=== PATIENT | male | born 1955 | race African-American/Black ===

== ENCOUNTER 2024-11-19 15:37 | Emergency (ER) | payer OTHER, SELFPAY ==
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
[2024-11-19 15:46] VITALS: BP 121/70; PULSE 71; RESP 18; TEMP 36.6; O2SAT 100
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
--- OUTSIDE RECORDS SUMMARY | 2024-11-19 17:24 | XMS_ITS | Referral Summary ---
Author Organization [facility] are Services Address [address] [place] [address] Care Team Providers Care Admittance Attendant Name Role Phone Cherrie Weir RN Unavailable Unavailable Jessie Perez CNP Primary Care Provider [phone] Allergies No known active allergies Social History Tobacco Use Types Packs/Day Years Used Date Smoking Tobacco: Never Assessed Social Connections Answer Date Recorded Phone Family/Friends/Neighbors per Week Not on f ile 05/22/2020 Gather with Friends/Family per Week Not on file 05/22/2020 Quaker/Presybeterian Services per Week Not on file 05/22/2020 Club/Organization Meetings per Year Not on file 05/22/2020 Social Connection Calculated Score 0 05/22/2020 Alcohol Use Answer Date Recorded Alcohol Consumption (Male) 0 05/22 Alcohol Consumption (Female) Not on file 04/2020 Financial Resource Strain Answer Date R ecorded Financial Concerns 2 08/22/2021 Depression Answer Date Recorded Patient feels they would be better off Not on file 05/22/2020 Depression Risk Score 0 05/22/2020 Stress Answer Date Recorded Patient Reported Major Stressor(s) 0 05/22/2020 Patient Reported Strengths 1 05/22 Patient Reported Source(s) of Support 1 05/22/2020 Physical Activity Answer Date Recorded Days per week engaged in moderate to strenuous e xercise: Not on file 05/22/2020 Average minutes engaged in exercise at this leve l: Not on file 05/22/2020 Calculated Minutes of Exercise per Week: 0 05/22/2020 Transportation Needs Answer Date Record ed Lack of Transportation (Medical) 0 05/22/2020 Housing Stability Answer Date Recorded Housing Concerns 0 05/22/2020 Substance Use Disorder Answer Date Chip rded Substance Use 0 05/22/2020 Violence and Abuse Answer Date Recorded Occurrence of Violence 0 Threat of Violence 0 05/22/2020 Occurrence of Insult 0 05/22/2020 Verbal Abuse 0 05/22/2020 Sex and Gender Information Value Date Recorded Sex Assigned at Not on file Legal Sex Male 9:20 AM MST Gender Identity Not on file Sexual Orientation Not on file Plan of Treatment Not on file Insurance [facility] Care Teams Admittance Attendant Relationship Specialty Start Date End Date Jessie Perez CNP [address] [place] [address] PCP - General 04/17/21 Cherrie Weir, RN [facility] Registered Nurse Gastroenterology 03/29/14
--- OUTSIDE RECORDS SUMMARY | 2024-11-19 17:24 | XMS_ITS ---
Author Name [facility] [place] [facility] [place] Address [address] [place] [address] Care Team Providers Care Advertising Designer Name Role Phone NEELIMA FRANKS Primary Care Provider UnavailHARPAL Bailey Unavailable Unavailable Insurance Providers: All historical and current Section Date Range: From patient's date of to the date document was created. This section includes the names of all active insurance providers for the patient. Insurance Provider Type of Coverage Plan Name Start of Policy Coverage End of Policy Coverage Group Number Member ID Insurance Provider's Telephone Number Policy Jovel's Name Patient's Relationship to Policy Jovel MEDICARE (WNR) MEDICARE (M) PART A Feb 19, 2019 PART A [id number] [place] PATIENT MEDICARE (WNR) MEDICARE (M) PART A Feb 19, 2019 PART A [id number] [place] PATIENT Selected Encounter This section includes the information on record at OR for the Encounter. Date/Time Encounter Type Encounter Description Reason Pro vider Source Oct 08, 2024 08:39 AM Outpatient Encounter ADMIN PAT ACTIVTIES (MASNONCT) IHE Encounter Template Text not used by [place] Social History: Smoking Status (Most current) and Tobacco Use (All prior to encounter date) This section includes the most current, and the historical, smoking and tobacco- related health factors from the [place] facility where the Encounter took place. Current Smoking Status This section includes the most current smoking, or tobacco-related health factor, from the [place] facility where the Encounter took place. Date/Time Current Smoking Status Comment Alice chavez Oct 04, 2022 09:30 AM VA-TOBACCO FORMER USER ARACELIS MENESES [facility] Tobacco Use History This section includes a history of the smoking, or tobacco-related health factors, that were collected on or before the date of the Encounter. The data comes from the [place] facility where the Encounter took place. Date/Time Smoking Status/Tobacco Use Comment F acility Oct 04, 2022 09:30 AM VA-TOBACCO QUIT 15 YRS OR MORE [facility]ELIS MENESES [facility] Sep 28, 2021 08:38 AM VA-TOBACCO FORMER USER ARACELIS MiroslavaSiddhartha MENESES [facility] Sep 28, 2021 08:38 AM VA-TOBACCO QUIT 15 YRS OR MORE ARACELIS MENESES [facility] August 24, 2020 09:15 AM VA-TOBACCO FORMER USER ARACELIS Robbi GIDEON [facility] August 24, 2020 09:15 AM VA-TOBACCO QUIT 15 YRS OR MORE ARACELIS MENESES [facility] Feb 19, 2018 11:23 AM VA-TOBACCO FORMER USER ARACELIS MiroslavaSiddhartha MENESES [facility] Feb 19, 2018 11:23 AM VA-TOBACCO QUIT 15 YRS OR MORE ARACELIS MENESES [facility] Aug 18, 2017 02:21 PM LIFETIME NON-TOBACCO USER ARACELIS MENESES [facility] Aug 18, 2017 02:21 PM TOBACCO SCREEN DONE ARACELIS MENESES [facility] Oct 28, 2016 02:16 PM TOBACCO LAST USED DATE ARACELIS MiroslavaSiddhartha MENESES [facility] Oct 28, 2016 12:36 PM LIFETIME NON-TOBACCO USER ARACELIS MiroslavaSiddhartha MENESES [facility] Oct 28, 2016 12:36 PM TOBACCO SCREEN DONE ARACELIS MENESES [facility] Dec 07, 2015 08:34 AM LIFETIME NON-TOBACCO USER ARACELIS MiroslavaSiddhartha MENESES [facility] Dec 07, 2015 08:34 AM TOBACCO SCREEN DONE ARACELIS MENESES [facility] Feb 06, 2015 01:02 PM TOBACCO LAST USED DATE [facility]ACELIS MENESES [facility] Encounter Notes: All associated encounter notes This section contains the clinical notes associated to the Encounter. Date/Time Encounter Note(s) Provider Source Oct 08, 2024 08:45 AM ADMINISTRATIVE NOT E: LOCAL TITLE: GENERAL ADMINISTRATIVE NOTE STANDARD TITLE: ADMINISTRATIVE NOTE DATE OF NOTE: OCT 08, 2024@08:45 ENTRY DATE: OCT 08, 2024@08:46:01 AUTHOR: HIEN COBB COSIGNER: URGENCY: STATUS: COMPLETED The letter text copied below was printed on [employer] letterhead and mailed to the patient along with a brochure about liver health and the FibroScan test. = AddressBlock GreetingLine We hope this letter finds you well. We are writing to follow on the letter sent to you on FirstLetterDate . The Liver Health Team is working with your primary care team to improve early recognition of liver disease. A calculation done using some of your lab results and your age suggests that you may be at risk for liver disease. Dr. Sommer and Dr. Mejias have/has asked the Liver Health Team to contact all of their patients who may be at risk for liver disease for further evaluation. To find out if you have liver disease, the Liver Health Team and your primary care team would like to give you the opportunity to have a FibroScan, an FDA-approved, non- invasive diagnostic test used to measure liver scarring or fibrosis caused by a number of liver conditions. We make this recommendation because if liver disease is present, early treatment helps decrease future complications. If you are interested in a FibroScan please call the [facility] FibroScan master scheduler at x [phone]. Please additionally read the instructions below prior to your appointment. You will need to fast (nothing to eat or drink) for 3 hours before your appointment. You should not drink any alcohol for at least three days prior to your appointment as alcohol intake can make the FibroScan results inaccurate. If you have any questions about the risk calculation or the FibroScan, please call the number above and ask to speak to a member of the Liver Health Team. Thank you for taking an active role in your healthcare. Sincerely, The Liver Health Team [facility] = /es/ HIEN COBB MD/ATTENDING PHYSICIAN Signed: 10/08/2024 08:48 HIEN COBB [facility]
--- OUTSIDE RECORDS SUMMARY | 2024-11-19 17:24 | XMS_ITS | Encounter Summary ---
Author Name [facility] [place] [facility] [facility] [place] Address [address] [place] [address] Care Team Providers Care Bias Machine Operator Name Role Phone NEELIMA FRANKS Primary Care [...] PART A Feb 19, 2019 PART A [id number] [place] PATIENT MEDICARE (WNR) MEDICARE (M) PART A Feb 19, 2019 PART A [id number] [place] PATIENT Selected Encounter This section includes the information on record at [place] for the Encounter. Date/Time Encounter Type Encounter Description Reason Pro vider Source Dec 31, 2023 04:24 PM Outpatient Encounter ADMIN PAT ACTIVTIES (MASNONCT) IHE Encounter Template Text not used by [place] Plan of Treatment: Future Appointments (+ 6 months) and Future Tests (+/- 45 days) The Plan of Treatment section includes future care activities for the patient from all VA treatmentfacilities. This section includes future appointments and future orders which are active, pending or scheduled. Active, Pending, and Scheduled Orders This section includes a listing of several types of active, pending, and scheduled orders, including clinic medications orders, diagnostic test orders, procedure orders and consult orders; where the start date of the order is 45 days before the date of the Encounter or 45 days after the date of theEncounter. The data comes from all [place] treatment facilities. Test Date/Time Test Type Test Details Facility Name Dec 09, 2023 12:00 AM Laboratory - Chemi stry Order LIPID PANEL LT GREEN/LITHIUM HEPARIN GEL PLASMA ROUTINE SP [facility]IS PINEDA [facility] Dec 16, 2023 12:00 AM Laboratory - Chemi stry Order Hepatitis C Antibody w/Reflex GOLD TOP SERUM ROUTINE SP AR[facility]ELIS PINEDA [facility] Social History: Smoking Status (Most current) and Tobacco Use (All prior to encounter date) This section includes the most current, and the historical, smoking and tobacco- related health factors from the [place] facility where the Encounter took place. Current Smoking Status This section includes the most current smoking, or tobacco-related health factor, from the [place] facility where the Encounter took place. Date/Time Current Smoking Status Comment Facil ity Oct 04, 2022 09:30 AM VA-TOBACCO FORMER USER [facility] PINEDA [facility] Tobacco Use History This section includes a history of the smoking, or tobacco-related health factors, that were collected on or before the date of the Encounter. The data comes from the [place] facility where the Encounter took place. Date/Time Smoking Status/Tobacco Use Comment F acility Oct 04, 2022 09:30 AM VA-TOBACCO QUIT 15 YRS OR MORE [facility] PINED[facility] Sep 28, 2021 08:38 AM VA-TOBACCO FORMER USER [facility]IS PINEDA [facility] Sep 28, 2021 08:38 AM VA-TOBACCO QUIT 15 YRS OR MORE [facility] August 24, 2020 09:15 AM VA-TOBACCO FORMER USER [facility]ELIS PINEDA [facility] August 24, 2020 09:15 AM VA-TOBACCO QUIT 15 YRS OR MORE [facility] PINEDA [facility] Feb 19, 2018 11:23 AM VA-TOBACCO FORMER USER [facility]ELIS PINEDA [facility] Feb 19, 2018 11:23 AM VA-TOBACCO QUIT 15 YRS OR MORE [facility] PINEDA [facility] Aug 18, 2017 02:21 PM LIFETIME NON-TOBACCO USER ARACELIS PINEDA [facility] Aug 18, 2017 02:21 PM TOBACCO SCREEN DONE AR[facility]ELIS PINEDA [facility] Oct 28, 2016 02:16 PM TOBACCO LAST USED DATE [facility]ELIS PINEDA [facility] Oct 28, 2016 12:36 PM LIFETIME NON-TOBACCO USER ARACELIS PINEDA [facility] Oct 28, 2016 12:36 PM TOBACCO SCREEN DONE AR[facility]ELIS PINEDA [facility] Dec 07, 2015 08:34 AM LIFETIME NON-TOBACCO USER ARACELIS PINEDA [facility] Dec 07, 2015 08:34 AM TOBACCO SCREEN DONE ARACELIS PINEDA [facility] Feb 06, 2015 01:02 PM TOBACCO LAST USED DATE [facility]ELIS PINEDA [facility] Encounter Notes: All associated encounter notes This section contains the clinical notes associated to the Encounter. Date/Time Encounter Note(s) Provider Source Dec 31, 2023 04:24 PM LETTERS: LOCAL TITLE: LETTER TO PATIENT - AMB CARE STANDARD TITLE: LETTERS DATE OF NOTE: DEC 31, 2023@16:24 ENTRY DATE: DEC 31, 2023@16:24:28 AUTHOR: NEELIMA FRANKS EXP COSIGNER: URGENCY: STATUS: COMPLETED Aracelis Pineda [address] [address] [place] remains committed to honoring our Nation's Veterans by ensuring a safe environment to deliver exceptional health care [address] [place], [place], [address] Dear Jacque Vega, The Gastroenterology scheduling department has attempted several methods to contact you in order to schedule a Fibroscan. To date, they have not heard a response from you. Please call or at Extension [phone] for scheduling this appointment. If you have concerns, please call us at or Option 1 for pharmacy Option 2 to make/cancel/reschedule appointments or to leave a message for your primary care team Option 3 to speak to a triage nurse about a medical condition Sincerely, Neelima Franks MD [address] [place] [address] No Future Appointment NEELIMA FRANKS MiroslavaSiddhartha [facility]EDA [facility]
--- OUTSIDE RECORDS SUMMARY | 2024-11-19 17:24 | XMS_ITS | Clinical Summary ---
Author Organization [facility] are Services Address [address] [place] [address] Care Team Providers Care Workday Consultant Name Role Phone Cherrie Weir RN Unavailable Unavailable Jessie Perez CNP Primary Care Provider +1- [phone] Allergies No known active allergies Social History Tobacco Use Types Packs/Day Years Used Date Smoking Tobacco: Never Assessed Social Connections Answer Date Recorded Phone Family/Friends/Neighbors per Week Not on f ile 05/22/2020 Gather with Friends/Family per Week Not on file 05/22/2020 Taoism/Gnosticism Services per Week Not on file 05/22/2020 [...] Orientation Not on file Plan of Treatment Health Maintenance Due Date Last Done Comments Advanced Directive 1954 Colonoscopy 1954 Colorectal Cancer Screening 1954 DTaP. TDaP, and TD (1 - Tdap) 1978 (Cologuard) FIT-DNA 1999 CT Colonography 1999 FIT 1999 Pneumococcal Vaccine: 50+ Ye ars (1 of 1 - PCV) 2004 Zoster Vaccine (1 of 2) 2004 HEPATITIS C SCREENING 03/29/2014 COVID-19 Vaccine ( - 2023-2 5 season) 2023 Influenza Vaccine (#1) 2024 HPV IMMUNIZATION Aged Out No longer e ligible based on patient's age to complete this topic Meningococcal B Vaccine Aged Out No l onger eligible based on patient's age to complete this topic Insurance [facility] [employer] Care Teams Workday Consultant Relationship Specialty Start Date End Date Jessie Perez CNP [address] [place] [address] PCP - General 04/17/21 Cherrie Weir, RN [employer] Registered Nurse Gastroenterology 03/29/14
--- OUTSIDE RECORDS SUMMARY | 2024-11-19 17:25 | XMS_ITS | Continuity of Care Document ---
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 2023 05:13 PM Reporting Lab: [facility] [address] [place] [address] Performing Lab: [facility] [address] [place] [address] [facility] CBC w/Auto Diff ERYTHROCYT E DISTRIBUTI ON WIDTH [RATIO] BY AUTOMATED COUNT 13.0 11.0 - 14.5 08/26 Specimen Type: BLOOD No comment entered. Ordering Provider: HARPAL DEXTER Report Released Date/Time: Jun 04, 2023 05:13 PM Reporting Lab: [facility] [address] [place] [address] Performing Lab: [facility] [address] [place] [address] [facility] CBC w/Auto Diff LYMPHOCYTE S/100 LEUKOCYTES IN BLOOD BY AUTOMATED COUNT 53.8 08/26 Specimen Type: BLOOD No comment entered. Ordering Provider: HARPAL DEXTER Report Released Date/Time: Jun 04, 2023 05:13 PM Reporting Lab: [facility] [address] [place] [address] Performing Lab: [facility] [address] [place] [address] [facility] CBC w/Auto Diff NEUTROPHIL S/100 LEUKOCYTES IN BLOOD BY AUTOMATED COUNT 33.6 08/26 Specimen Type: BLOOD No comment entered. Ordering Provider: HARPAL DEXTER Report Released Date/Time: Jun 04, 2023 05:13 PM Reporting Lab: [facility] [address] [place] [address] Performing Lab: [facility] [address] [place] [address] [facility] CBC w/Auto Diff MONOCYTES/ 100 LEUKOCYTES IN BLOOD BY AUTOMATED COUNT 9.4 08/26 Specimen Type: BLOOD No comment entered. Ordering Provider: HARPAL DEXTER Report Released Date/Time: Jun 04, 2023 05:13 PM Reporting Lab: [facility] [address] [place] [address] Performing Lab: [facility] [address] [place] [address] [facility] CBC w/Auto Diff EOSINOPHIL S/100 LEUKOCYTES IN BLOOD BY AUTOMATED COUNT 2.0 08/26 Specimen Type: BLOOD No comment entered. Ordering Provider: HARPAL DEXTER Report Released Date/Time: Jun 04, 2023 05:13 PM Reporting Lab: [facility] [address] [place] [address] Performing Lab: [facility] [address] [place] [address] [facility] CBC w/Auto Diff BASOPHILS/ 100 LEUKOCYTES IN BLOOD BY AUTOMATED COUNT 1.0 08/26 Specimen Type: BLOOD No comment entered. Ordering Provider: HARPAL DEXTER Report Released Date/Time: Jun 04, 2023 05:13 PM Reporting Lab: [facility] [address] [place] [address] Performing Lab: [facility] [address] [place] [address] [facility] CBC w/Auto Diff LYMPHOCYTE S [#/VOLUME] IN BLOOD BY AUTOMATED COUNT 2.17 10*3/uL 1.00 - 3.40 08/26 Specimen Type: BLOOD No comment entered. Ordering Provider: HARPAL DEXTER Report Released Date/Time: Jun 04, 2023 05:13 PM Reporting Lab: [facility] [address] [place] [address] Performing Lab: [facility] [address] [place] [address] [facility] CBC w/Auto Diff MONOCYTES [#/VOLUME] IN BLOOD BY AUTOMATED COUNT 0.38 10*3/uL 0.20 - 0.80 08/26 Specimen Type: BLOOD No comment entered. Ordering Provider: HARPAL DEXTER Report Released Date/Time: Jun 04, 2023 05:13 PM Reporting Lab: [facility] [address] [place] [address] Performing Lab: [facility] [address] [place] [address] [facility] CBC w/Auto Diff NEUTROPHIL S [#/VOLUME] IN BLOOD 1.35 10*3/uL 1.80 - 7.00 08/26 L Specimen Type: BLOOD No comment entered. Ordering Provider: HARPAL DEXTER Report Released Date/Time: Jun 04, 2023 05:13 PM Reporting Lab: [facility] [address] [place] [address] Performing Lab: [facility] [place] [address] [place] [address] [facility] CBC w/Auto Diff EOSINOPHIL S [#/VOLUME] IN BLOOD BY AUTOMATED COUNT 0.08 10*3/uL 0.00 - 0.30 08/26 Specimen Type: BLOOD No comment entered. Ordering Provider: HARPAL DEXTER Report Released Date/Time: Jun 04, 2023 05:13 PM Reporting Lab: [facility] [address] [place] [address] Performing Lab: [facility] [place] [address] [place] [address] [facility] CBC w/Auto Diff BASOPHILS/ 100 LEUKOCYTES IN BLOOD BY AUTOMATED COUNT 0.04 10*3/uL 0.00 - 0.10 08/26 Specimen Type: BLOOD No comment entered. Ordering Provider: HARPAL DEXTER Report Released Date/Time: Jun 04, 2023 05:13 PM Reporting Lab: [facility] [address] [address] Performing Lab: [facility] [address] [address] [facility] CBC w/Auto Diff IMMATURE GRANULOCYT ES/100 LEUKOCYTES IN BLOOD 0.2 0 - 0.5 08/26 Specimen Type: BLOOD No comment entered. Ordering Provider: HARPAL DEXTER Report Released Date/Time: Jun 04, 2023 05:13 PM Reporting Lab: [facility] [address] [place] [address] Performing Lab: [facility] [address] [address] [facility] BASIC METABOLIC PANEL UREA NITROGEN [MASS/VOLU ME] IN SERUM OR PLASMA 15 mg/dL 9 - 20 08/26 Specimen Type: PLASMA Comment: eGFR calculated using the 2020 CKD-EPI-cre atinine equation. eGFR can only be interpreted if creatinine is in a steady state and is not valid in patients with acute kidney injury and in patients on dialysis. An eGFR >60 mL/min/1.73 m2 in the absence of kidney damage does not represent CKD. If eGFR is used for drug dosing in very large or small patients, an eGFR for drug dosing should be calculated as follows: eGFR (mL/min) = reported eGFR (mL/min/1.7 3 m2) x body surface area/1.73 CKD stage eGFR (mL/min/1.7 3 m2) G1 >=90 G2 60-89 G3A 45-59 G3B 30-44 G4 15-29 G5 <15 Ordering Provider: HARPAL DEXTER Report Released Date/Time: Jun 04, 2023 05:13 PM Reporting Lab: [facility] [address] [place] [address] Performing Lab: [facility] [place] [address] [address] [facility] BASIC METABOLIC PANEL GLUCOSE [MASS/VOLU ME] IN SERUM OR PLASMA 94 mg/dL 74 - 99 08/26 Specimen Type: PLASMA Comment: eGFR calculated using the 2020 CKD-EPI-cre atinine equation. eGFR can only be interpreted if creatinine is in a steady state and is not valid in patients with acute kidney injury and in patients on dialysis. An eGFR >60 mL/min/1.73 m2 in the absence of kidney damage does not represent CKD. If eGFR is used for drug dosing in very large or small patients, an eGFR for drug dosing should be calculated as follows: eGFR (mL/min) = reported eGFR (mL/min/1.7 3 m2) x body surface area/1.73 CKD stage eGFR (mL/min/1.7 3 m2) G1 >=90 G2 60-89 G3A 45-59 G3B 30-44 G4 15-29 G5 <15 Ordering Provider: HARPAL DEXTER Report Released Date/Time: Jun 04, 2023 05:13 PM Reporting Lab: [facility] [place] [address] [place] [address] Performing Lab: [facility] [place] [address] [place] [address] [facility] BASIC METABOLIC PANEL SODIUM [MOLES/VOL UME] IN SERUM OR PLASMA 137 mmol/L 135 - 145 08/26 Specimen Type: PLASMA Comment: eGFR calculated using the 2020 CKD-EPI-cre atinine equation. eGFR can only be interpreted if creatinine is in a steady state and is not valid in patients with acute kidney injury and in patients on dialysis. An eGFR >60 mL/min/1.73 m2 in the absence of kidney damage does not represent CKD. If eGFR is used for drug dosing in very large or small patients, an eGFR for drug dosing should be calculated as follows: eGFR (mL/min) = reported eGFR (mL/min/1.7 3 m2) x body surface area/1.73 CKD stage eGFR (mL/min/1.7 3 m2) G1 >=90 G2 60-89 G3A 45-59 G3B 30-44 G4 15-29 G5 <15 Ordering Provider: HARPAL DEXTER Report Released Date/Time: Jun 04, 2023 05:13 PM Reporting Lab: [facility] [place] [address] [address] Performing Lab: [facility] [address] [place] [address] [facility] BASIC METABOLIC PANEL POTASSIUM [MOLES/VOL UME] IN SERUM OR PLASMA 3.8 mmol/L 3.4 - 4.8 08/26 Specimen Type: PLASMA Comment: eGFR calculated using the 2020 CKD-EPI-cre atinine equation. eGFR can only be interpreted if creatinine is in a steady state and is not valid in patients with acute kidney injury and in patients on dialysis. An eGFR >60 mL/min/1.73 m2 in the absence of kidney damage does not represent CKD. If eGFR is used for drug dosing in very large or small patients, an eGFR for drug dosing should be calculated as follows: eGFR (mL/min) = reported eGFR (mL/min/1.7 3 m2) x body surface area/1.73 CKD stage eGFR (mL/min/1.7 3 m2) G1 >=90 G2 60-89 G3A 45-59 G3B 30-44 G4 15-29 G5 <15 Ordering Provider: HARPAL DEXTER Report Released Date/Time: Jun 04, 2023 05:13 PM Reporting Lab: [facility] [address] [place] [address] Performing Lab: [facility] [address] [place] [address] [facility] BASIC METABOLIC PANEL CHLORIDE [MOLES/VOL UME] IN SERUM OR PLASMA 102 mmol/L 98 - 107 08/26 Specimen Type: PLASMA Comment: eGFR calculated using the 2020 CKD-EPI-cre atinine equation. eGFR can only be interpreted if creatinine is in a steady state and is not valid in patients with acute kidney injury and in patients on dialysis. An eGFR >60 mL/min/1.73 m2 in the absence of kidney damage does not represent CKD. If eGFR is used for drug dosing in very large or small patients, an eGFR for drug dosing should be calculated as follows: eGFR (mL/min) = reported eGFR (mL/min/1.7 3 m2) x body surface area/1.73 CKD stage eGFR (mL/min/1.7 3 m2) G1 >=90 G2 60-89 G3A 45-59 G3B 30-44 G4 15-29 G5 <15 Ordering Provider: HARPAL DEXTER Report Released Date/Time: Jun 04, 2023 05:13 PM Reporting Lab: [facility] [place] [address] [place] [address] Performing Lab: [facility] [address] [place] [address] [facility] BASIC METABOLIC PANEL CARBON DIOXIDE, TOTAL [MOLES/VOL UME] IN SERUM OR PLASMA 28 mmol/L 08/26 Specimen Type: PLASMA Comment: eGFR calculated using the 2020 CKD-EPI-cre atinine equation. eGFR can only be interpreted if creatinine is in a steady state and is not valid in patients with acute kidney injury and in patients on dialysis. An eGFR >60 mL/min/1.73 m2 in the absence of kidney damage does not represent CKD. If eGFR is used for drug dosing in very large or small patients, an eGFR for drug dosing should be calculated as follows: eGFR (mL/min) = reported eGFR (mL/min/1.7 3 m2) x body surface area/1.73 CKD stage eGFR (mL/min/1.7 3 m2) G1 >=90 G2 60-89 G3A 45-59 G3B 30-44 G4 15-29 G5 <15 Ordering Provider: HARPAL DEXTER Report Released Date/Time: Jun 04, 2023 05:13 PM Reporting Lab: [facility] [address] [place] [address] Performing Lab: [facility] [place] [address] [place] [address] [facility] BASIC METABOLIC PANEL CALCIUM [MASS/VOLU ME] IN SERUM OR PLASMA 9.4 mg/dL 8.4 - 10.2 08/26 Specimen Type: PLASMA Comment: eGFR calculated using the 2020 CKD-EPI-cre atinine equation. eGFR can only be interpreted if creatinine is in a steady state and is not valid in patients with acute kidney injury and in patients on dialysis. An eGFR >60 mL/min/1.73 m2 in the absence of kidney damage does not represent CKD. If eGFR is used for drug dosing in very large or small patients, an eGFR for drug dosing should be calculated as follows: eGFR (mL/min) = reported eGFR (mL/min/1.7 3 m2) x body surface area/1.73 CKD stage eGFR (mL/min/1.7 3 m2) G1 >=90 G2 60-89 G3A 45-59 G3B 30-44 G4 15-29 G5 <15 Ordering Provider: HARPAL DEXTER Report Released Date/Time: Jun 04, 2023 05:13 PM Reporting Lab: [facility] [address] [place] [address] Performing Lab: [facility] [place] [address] [place] [address] [facility] BASIC METABOLIC PANEL CREATININE [MASS/VOLU ME] IN SERUM OR PLASMA 1.06 mg/dL 0.66 - 1.25 08/26 Specimen Type: PLASMA Comment: eGFR calculated using the 2020 CKD-EPI-cre atinine equation. eGFR can only be interpreted if creatinine is in a steady state and is not valid in patients with acute kidney injury and in patients on dialysis. An eGFR >60 mL/min/1.73 m2 in the absence of kidney damage does not represent CKD. If eGFR is used for drug dosing in very large or small patients, an eGFR for drug dosing should be calculated as follows: eGFR (mL/min) = reported eGFR (mL/min/1.7 3 m2) x body surface area/1.73 CKD stage eGFR (mL/min/1.7 3 m2) G1 >=90 G2 60-89 G3A 45-59 G3B 30-44 G4 15-29 G5 <15 Ordering Provider: HARPAL DEXTER Report Released Date/Time: Jun 04, 2023 05:13 PM Reporting Lab: [facility] [address] [place] [address] Performing Lab: [facility] [place] [address] [place] [address] [facility] BASIC METABOLIC PANEL GLOMERULAR FILTRATION RATE/1.73 SQ M.PREDICTE D [VOLUME RATE/AREA] IN SERUM, PLASMA OR BLOOD BY CREATININE -BASED FORMULA (CKD-EPI 2020) 76 90 08/26 L Specimen Type: PLASMA Comment: eGFR calculated using the 2020 CKD-EPI-cre atinine equation. eGFR can only be interpreted if creatinine is in a steady state and is not valid in patients with acute kidney injury and in patients on dialysis. An eGFR >60 mL/min/1.73 m2 in the absence of kidney damage does not represent CKD. If eGFR is used for drug dosing in very large or small patients, an eGFR for drug dosing should be calculated as follows: eGFR (mL/min) = reported eGFR (mL/min/1.7 3 m2) x body surface area/1.73 CKD stage eGFR (mL/min/1.7 3 m2) G1 >=90 G2 60-89 G3A 45-59 G3B 30-44 G4 15-29 G5 <15 Ordering Provider: HARPAL DEXTER Report Released Date/Time: Jun 04, 2023 05:13 PM Reporting Lab: [facility] [address] [place] [address] Performing Lab: [facility] [address] [address] [facility] BASIC METABOLIC PANEL ANION GAP 3 IN SERUM OR PLASMA 7 mmol/L 6 - 14 08/26 Specimen Type: PLASMA Comment: eGFR calculated using the 2020 CKD-EPI-cre atinine equation. eGFR can only be interpreted if creatinine is in a steady state and is not valid in patients with acute kidney injury and in patients on dialysis. An eGFR >60 mL/min/1.73 m2 in the absence of kidney damage does not represent CKD. If eGFR is used for drug dosing in very large or small patients, an eGFR for drug dosing should be calculated as follows: eGFR (mL/min) = reported eGFR (mL/min/1.7 3 m2) x body surface area/1.73 CKD stage eGFR (mL/min/1.7 3 m2) G1 >=90 G2 60-89 G3A 45-59 G3B 30-44 G4 15-29 G5 <15 Ordering Provider: HARPAL DEXTRE Report Released Date/Time: Jun 04, 2023 05:13 PM Reporting Lab: [facility] [address] [place] [address] Performing Lab: [facility] [address] [place] [address] [facility] URINALYSI S COLOR OF URINE Light-Ye llow 08/26 Specimen Type: URINE No comment entered. Ordering Provider: HARPAL DEXTER Report Released Date/Time: Jun 04, 2023 05:13 PM Reporting Lab: [facility] [address] [place] [address] Performing Lab: [facility] [address] [place] [address] [facility] URINALYSI S SPECIFIC GRAVITY OF URINE 1.018 1.001 - 1.029 08/26 Specimen Type: URINE No comment entered. Ordering Provider: HARPAL DEXTER Report Released Date/Time: Jun 04, 2023 05:13 PM Reporting Lab: [facility] [address] [place] [address] Performing Lab: [facility] [address] [place] [address] [facility] URINALYSI S UROBILINOG EN [UNITS/VOL UME] IN URINE BY TEST STRIP Normalmg /dL 08/26 Specimen Type: URINE No comment entered. Ordering Provider: HARPAL DEXTER Report Released Date/Time: Jun 04, 2023 05:13 PM Reporting Lab: [facility] [address] [place] [address] Performing Lab: [facility] [address] [place] [address] [facility] URINALYSI S BILIRUBIN. TOTAL [PRESENCE] IN URINE Negative mg/dL 08/26 Specimen Type: URINE No comment entered. Ordering Provider: HARPAL DEXTER Report Released Date/Time: Jun 04, 2023 05:13 PM Reporting Lab: [facility] [address] [place] [address] Performing Lab: [facility] [address] [place] [address] [facility] URINALYSI S KETONES [MASS/VOLU ME] IN URINE BY TEST STRIP Negative mg/dL 08/26 Specimen Type: URINE No comment entered. Ordering Provider: HARPAL DEXTER Report Released Date/Time: Jun 04, 2023 05:13 PM Reporting Lab: [facility] [address] [place] [address] Performing Lab: [facility] [address] [place] [address] [facility] URINALYSI S GLUCOSE [MASS/VOLU ME] IN URINE BY TEST STRIP Normalmg /dL 08/26 Specimen Type: URINE No comment entered. Ordering Provider: HARPAL DEXTER Report Released Date/Time: Jun 04, 2023 05:13 PM Reporting Lab: [facility] [address] [place] [address] Performing Lab: [facility] [address] [place] [address] [facility] URINALYSI S PROTEIN [MASS/VOLU ME] IN URINE BY TEST STRIP 30 mg/dL - 10 08/26 H Specimen Type: URINE No comment entered. Ordering Provider: HARPAL DEXTER Report Released Date/Time: Jun 04, 2023 05:13 PM Reporting Lab: [facility] [address] [place] [address] Performing Lab: [facility] [address] [address] [facility] URINALYSI S PH OF URINE BY TEST STRIP 7.0 5.0 - 8.0 08/26 Specimen Type: URINE No comment entered. Ordering Provider: HARPAL DEXTER Report Released Date/Time: Jun 04, 2023 05:13 PM Reporting Lab: [facility] [address] [place] [address] Performing Lab: [facility] [address] [place] [address] [facility] URINALYSI S MUCUS [PRESENCE] IN URINE SEDIMENT BY LIGHT MICROSCOPY Few 08/26 Specimen Type: URINE No comment entered. Ordering Provider: HARPAL DEXTER Report Released Date/Time: Jun 04, 2023 05:13 PM Reporting Lab: [facility] [address] [place] [address] Performing Lab: [facility] [address] [address] [facility] URINALYSI S ERYTHROCYT ES [#/AREA] IN URINE SEDIMENT BY MICROSCOPY HIGH POWER FIELD 1 /[HPF] 0 - 4 08/26 Specimen Type: URINE No comment entered. Ordering Provider: HARPAL DEXTER Report Released Date/Time: Jun 04, 2023 05:13 PM Reporting Lab: [facility] [address] [address] [place] [address] Performing Lab: [facility] [address] [address] [address] [facility] URINALYSI S APPEARANCE OF URINE Clear 08/26 Specimen Type: URINE No comment entered. Ordering Provider: HARPAL DEXTER Report Released Date/Time: Jun 04, 2023 05:13 PM Reporting Lab: [facility] [address] [place] [address] Performing Lab: [facility] [address] [address] [place] [address] [facility] URINALYSI S EPITHELIAL CELLS.SQUA MOUS [#/AREA] IN URINE SEDIMENT BY MICROSCOPY HIGH POWER FIELD <1/[HPF] 0 - 5 08/26 Specimen Type: URINE No comment entered. Ordering Provider: HARPAL DEXTER Report Released Date/Time: Jun 04, 2023 05:13 PM Reporting Lab: [facility] [address] [place] [address] Performing Lab: [facility] [address] [place] [address] [facility] URINALYSI S HEMOGLOBIN [PRESENCE] IN URINE Negative mg/dL - 0.03 08/26 Specimen Type: URINE No comment entered. Ordering Provider: HARPAL DEXTER Report Released Date/Time: Jun 04, 2023 05:13 PM Reporting Lab: [facility] [address] [place] [address] Performing Lab: [facility] [address] [place] [address] [facility] URINALYSI S NITRITE [PRESENCE] IN URINE BY TEST STRIP Negative 08/26 Specimen Type: URINE No comment entered. Ordering Provider: HARPAL DEXTER Report Released Date/Time: Jun 04, 2023 05:13 PM Reporting Lab: [facility] [address] [place] [address] Performing Lab: [facility] [address] [place] [address] [facility] URINALYSI S LEUKOCYTE ESTERASE [PRESENCE] IN URINE BY TEST STRIP Negative - 25 08/26 Specimen Type: URINE No comment entered. Ordering Provider: HARPAL DEXTER Report Released Date/Time: Jun 04, 2023 05:13 PM Reporting Lab: [facility] [address] [place] [address] Performing Lab: [facility] [address] [place] [address] [facility] ALPHA FETOPROTE IN ALPHA-1-FE TOPROTEIN [MASS/VOLU ME] IN SERUM OR PLASMA 4.58 ng/mL 2 - 15 08/26 Specimen Type: PLASMA No comment entered. Ordering Provider: NEELIMA FRANKS Report Released Date/Time: August 27, 2023 07:49 AM Reporting Lab: [facility] [address] [address] Performing Lab: [facility] [address] [facility] [address] [facility] PROSTATE SPECIFIC ANTIGEN PROSTATE SPECIFIC AG [MASS/VOLU ME] IN SERUM OR PLASMA 3.42 ng/mL 0 - 4.5 08/26 Specimen Type: SERUM Comment: Use of high dose Biotin supplements may cause falsely low Prostate Specific Antigen results. There is no clear breakpoint between normal and abnormal PSA levels. Factors such as digital rectal exam, age, race, and family history are important to consider. The use of finasteride or dutasteride can lower PSA levels by 50%. PSA performed on the [employer]. Ordering Provider: NEELIMA FRANKS Report Released Date/Time: August 27, 2023 07:48 AM Reporting Lab: [facility] [address] [address] Performing Lab: [facility] [address] [address] [facility] Encounters Combined list of: 1) Encounters from Department of Veterans Affairs facilities going backup to the last 18 months, not all VA inpatient encounters are included; 2) Encounters from the Department of Defense facilities going backup to 280 months. Location Location Details Encounter Type Encounter Number Reason For Visit Attending Provider ADM Date DC Date Status Disposition Source [facility] OUTPATIENT [id number] 2 DAYS MARSHALLMARGARETH 09/13 [facility] Primary [facility]) OUTPATIENT [id number] follow- up NEO RGAYSON R 02/04 Released w/o Limitations [facility]) [facility] Primary [facility]) OUTPATIENT [id number] Flu Shot NEO GRAYSON R 02/04 Released w/o Limitations [facility] Primary Care) OUTPATIENT [id number] can't hear out of left ear NEO GRAYSON 04/10 Released w/o Limitations [facility] Primary Care) [facility] Primary Care) OUTPATIENT [id number] lab work NEO GRAYSON 06/21 Released w/o Limitations [facility] Primary Care) [facility] Primary Care) TELE CONSULT [id number] NEO GRAYSON 06/25 [facility] Primary Care) [facility] Primary Care) TELE CONSULT [id number] pt would like to discuss lab results CRISTHIAN BAKER 07/12 [facility] Primary Care) [facility] Primary Care) TELE CONSULT [id number] review lab work CRISTHIAN BAKER 08/13 [facility] Primary Care) [facility] Primary Care) OUTPATIENT [id number] follow up labs NEO GRAYSON 09/23 Released w/o Limitations [facility] Primary Care) [facility] Primary Care) TELE CONSULT [id number] NEO GRAYSON 12/20 [facility] Primary Care) [facility] Primary Care) TELE CONSULT [id number] Req resubmi t Gastro Referra l NEO GRAYSON 12/27 [facility] Primary Care) [facility] Primary Care) OUTPATIENT [id number] [facility]- [facility] NEO GRAYSON 05/12 Released w/o Limitations [facility] Primary Care) [facility] Primary Care) OUTPATIENT [id number] immuniz RACHEL Teran R 01/27 [facility] Limitations [facility] OUTPATIENT [id number] immuniz RACHEL Teran R 03/03 [facility]ased w/[facility] Limitations [facility] OUTPATIENT [id number] [facility] JANETTE NICKERSON 08/03 Released w/o Limitations [facility] TELE CONSULT [id number] Notes Entered by: MAN CANO 06 Nov 2011 1213 ------- ------- ------- ------- -- [id number] Would like advice on intefer on treatme nt before he starts ELLIS RODRIGUEZ 11/05 [facility] G[facility]olo gy) [facility] OUTPATIENT [id number] REFERRA L WINSTON ALCAZAR 11/17 Released w/o Limitations [facility] Primary Care) TELE CONSULT [id number] Notes Entered by: MILENA HURTADO 30 Dec 2011 0843 ------- ------- ------- ------- -- Med Problem s WINSTON BEAULIEU 12/29 [facility] M[facility] N[facility] OUTPATIENT [id number] REFERRA WINSTON LANDEROS 07/07 Released w/o Limitations [facility] M01A NIKITA) [facility] SELF CARE MNGMENT TRAINING [id number] Diagnos is: ICD-10- CM M25.571 Pain in right ankle and joints of right foot JASS PETERSENSEY F 05/26 [facility] Outpatient Encounter [id number] 05/29 [facility] Outpatient Encounter [id number] 05/30 [facility] Outpatient Encounter [id number] 06/03 [facility] Outpatient Encounter [id number] KIMBERLI DOSS A 06/03 [facility] Outpatient Encounter [id number] [id number] 06/03 [facility] Outpatient Encounter [id number] 06/03 [facility] OFFICE O/P EST LOW 20 MIN [id number] Diagnos is: ICD-10- CM F52.21 Male erectil e disorde r SOCO DELEON G 06/04 [facility] Outpatient Encounter [id number] 06/04 [facility] Outpatient Encounter [id number] [id number] CHARLOTTE DEXTER N E 06/04 [facility] QNHP OL DIG ASSMT&MGMT 5-10 [id number] [id number] Diagnos is: ICD-10- CM N52.9 Male erectil e dysfunc tion, unspeci fied Guille STRATTON G 06/04 [facility] Outpatient Encounter [id number] [id number] 06/05 [facility] OFF/OP CNSLTJ NEW/EST MOD 40 [id number] [id number] Diagnos is: ICD-10- CM H68.102 Unspeci fied obstruc tion of Eustach neymar tube, left ear JAYDEN SOSA HN V 07/03 [facility] CONFORMITY EVALUATION [id number] [id number] Diagnos is: ICD-10- CM H90.3 Sensori neural hearing loss, bilater al CRAGuille,LIANA RD K 07/10 [facility] Outpatient Encounter [id number] 08/25 [facility] Outpatient Encounter [id number] [id number] CHARLOTTE DEXTER E 08/26 [facility] Outpatient Encounter [id number] [id number] NEELIMA FRANKS 08/27 [facility] OFF/OP EST MAY X REQ PHY/QHP [id number] Diagnos is: ICD-10- CM M54.40 Lumbago with sciatic a, unspeci fied side ANJELICANJ CHAEL A 08/31 [facility] OFFICE O/P EST MOD 30 MIN [id number] [id number] Diagnos is: ICD-10- CM N52.9 Male erectil e dysfunc tion, unspeci fied FAVIS,KIMBERLI ICA A 08/31 [facility] Outpatient Encounter [id number] NEELIMA FRANKS 09/02 [facility] Outpatient Encounter [id number] [id number] 09/28 [facility] Outpatient Encounter [id number] [id number] 09/29 [facility] Outpatient Encounter [id number] [id number] CODY DEJESUS 10/19 [facility] Outpatient Encounter [id number] [id number] 10/21 [facility] Outpatient Encounter [id number] [id number] CODY DEJESUS 11/09 [facility] Outpatient Encounter [id number] [id number] CODY DEJESUS 11/09 [facility] Outpatient Encounter [id number] [id number] 11/11 [facility] Outpatient Encounter [id number] [id number] 12/02 [facility] Outpatient Encounter [id number] [id number] 12/30 [facility] Outpatient Encounter [id number] [id number] 12/30 [facility] Outpatient Encounter [id number] [id number] 12/31 [facility] Outpatient Encounter [id number] [id number] 01/01 [facility] Outpatient Encounter [id number] [id number] 02/17 [facility] Outpatient Encounter [id number] [id number] 03/10 [facility] Outpatient Encounter [id number] [id number] 03/24 [facility] Outpatient Encounter [id number] [id number] 04/15 [facility] C[facility] Outpatient Encounter [id number] [id number] 10/08 [facility] Outpatient Encounter [id number] [id number] 10/13 [facility] Robbi [facility] Procedures Combined list of: 1) Procedures from Department of Veterans Affairs facilities going back up to thelast 18 months, not all [place] non-surgical procedures are included; 2) All procedures from the Department of Defense facilities. Procedure Procedure Type Code Date Perfomer Comments [facility] e Hepatitis B Vaccine (Active); 20 Years and Above 08/04/[address] Supervised Injection Intramuscular Supervised Injection Intramuscular 27892 08/04/2007 ARMIN BLEDSOE [facility] Immunization Administration One Vaccine Immunization Administration One Vaccine 40322 08/04/2007 ARMIN BLEDSOE [facility] Influenza Split Virus Vaccine Age 3+ Years Intramuscular 03/03/2007 ARMIN BLEDSOE [facility] Hepatitis B Vaccine (Active); 20 Years and Above 03/03/2007 ARMIN BLEDSOE [facility] Immunization Administration Each Additional Vaccine 03/03/2007 ARMIN BLEDSOE [facility] Hepatitis A And Hepatitis B (Intramuscular Use) Adult Dosage Hepatitis A And Hepatitis B (Intramuscular Use) Adult Dosage 83417 03/03/[address] Supervised Injection Intramuscular Supervised Injection Intramuscular 95562 03/03/2007 ARMIN BLEDSOE [facility] Immunization Administration One Vaccine Immunization Administration One Vaccine 13621 03/03/2007 ARMIN BLEDSOE [facility] Tdap Vaccine Tdap Vaccine 01187 01/27/2007 NICKIEBERNIE [facility] Hepatitis B Vaccine (Active); 20 Years and Above 01/27/2007 THORNFIELDBERNIE [facility] Immunization Administration Each Additional Vaccine 01/27/2007 THORNFIELDKATA [facility] Immunization Administration One Vaccine Immunization Administration One Vaccine 79671 01/27/2007 THORNFIELDBERNIE [facility] Influenza Split Virus Vaccine Age 3+ Years Intramuscular 02/04/2005 MAXIMILIANO CHATMAN [facility] HEPATITIS B VACCINE (HEPB), ADULT DOSAGE, 3 DOSE SCHEDULE, FOR INTRAMUSCULAR USE 08/04/2007 [facility] INFLUENZA VIRUS VACCINE, TRIVALENT (IIV3), SPLIT VIRUS, 0.5 ML DOSAGE, FOR INTRAMUSCULAR USE 03/03/2007 [facility] IMMUNIZATION ADMINISTRATION (INCLUDES PERCUTANEOUS, INTRADERMAL, SUBCUTANEOUS, OR INTRAMUSCULAR INJECTIONS); 1 VACCINE (SINGLE OR COMBINATION VACCINE/TOXOID) 01/27/2007 [facility] INFLUENZA VIRUS VACCINE, TRIVALENT (IIV3), SPLIT VIRUS, 0.5 ML DOSAGE, FOR INTRAMUSCULAR USE 02/04/2005 [facility] UNLISTED SPECIAL SERVICE, PROCEDURE OR REPORT 09/18/2004 [facility] COLLECTION OF VENOUS BLOOD BY VENIPUNCTURE 06/29/2004 [facility] HEARING AID CHECK; BINAURAL 2001 [facility] HEARING AID CHECK; BINAURAL 02/03/2001 [facility] HEARING AID CHECK; MONAURAL 11/07/2000 [facility] HEARING AID CHECK; BINAURAL 10/15/2000 [facility] HEARING AID CHECK; BINAURAL 07/11/2000 [facility] ANALYSIS OF CLINICAL DATA STORED IN COMPUTERS (EG, ECGS, BLOOD PRESSURES, HEMATOLOGIC DATA) 06/16/2000 [facility] DISTORTION PRODUCT EVOKED OTOACOUS EMISSIONS;LIMITED EVALUATION (TO CONFIRM THE PRESENCE/ABSENCE OF HEARING DISORDER,3-6 FREQUENCIES)/TRANSIE NT EVOKED OTOACOUS EMISSIONS,W INTERPRETATION &REPORT 05/26/2000 [facility] HEARING AID CHECK; BINAURAL 04/07/2000 [facility] ANALYSIS OF CLINICAL DATA STORED IN COMPUTERS (EG, ECGS, BLOOD PRESSURES, HEMATOLOGIC DATA) 02/01/2000 [facility] PERCUTANEOUS (NEEDLE) BIOPSY OF LIVER 10/30/1994 [facility] Social History Combined list of available smoking, tobacco, and other social history from Department of Defense and Veterans Affairs facilities. Social History Type Response Date Comment Sour e Tobacco smoking status NHIS VA-TOBACCO FORMER USER 10/04/2022 [facility] History of tobacco use MA-TOBACCO QUIT 1 5 YRS OR MORE 10/04/2022 [facility] History of tobacco use VA-TOBACCO FORMER USER 09/28/2021 [facility] History of tobacco use VA-TOBACCO FORMER USER 08/24/2020 [facility] of [facility] 02/19/2018 [facility] History of tobacco use LIFETIME NON-TOBA REGISTERED REPRESENTATIVE USER 08/18/2017 [facility] History of tobacco use TOBACCO LAST USED DATE 10/28/2016 [facility] History of tobacco use LIFETIME NON-TOBA REGISTERED REPRESENTATIVE USER 10/28/2016 [facility] History of tobacco use LIFETIME NON-TOBA REGISTERED REPRESENTATIVE USER 12/07/2015 [facility] History of tobacco use TOBACCO LAST USED DATE 02/06/2015 [facility] History of tobacco use TOBACCO SCREEN DONE 02/06/2015 [facility] This section is an empty social history section. DoD
--- OUTSIDE RECORDS SUMMARY | 2024-11-19 17:25 | XMS_ITS | Encounter Summary ---
Author Name [facility] [facility] Address [address] [place] [id number] Care Team Providers Care Election Supervisor Name Role Phone NEELIMA FRANKS Primary Care [...] PART A Feb 19, 2019 PART A [id number] [place] PATIENT MEDICARE (WNR) MEDICARE (M) PART A Feb 19, 2019 PART A [id number] [place] PATIENT Selected Encounter This section includes the information on record at [place] for the Encounter. Date/Time Encounter Type Encounter Description Reason Pro vider Source Feb 18, 2024 06:41 AM Outpatient Encounter ADMIN PAT ACTIVTIES (MASNONCT) IHE Encounter Template Text not used by PA Social History: Smoking Status (Most current) and Tobacco Use (All prior to encounter date) This section includes the most current, and the historical, smoking and tobacco- related health factors from the [place] facility where the Encounter took place. Current Smoking Status This section includes the most current smoking, or tobacco-related health factor, from the [place] facility where the Encounter took place. Date/Time Current Smoking Status Comment Alice chavez Oct 04, 2022 09:30 AM VA-TOBACCO FORMER USER [facility] Tobacco Use History This section includes a history of the smoking, or tobacco-related health factors, that were collected on or before the date of the Encounter. The data comes from the [place] facility where the Encounter took place. Date/Time Smoking Status/Tobacco Use Comment F acility Oct 04, 2022 09:30 AM VA-TOBACCO QUIT 15 YRS OR MORE [facility] Sep 28, 2021 08:38 AM VA-TOBACCO FORMER USER [facility] MiroslavaSiddhartha [facility] Sep 28, 2021 08:38 AM VA-TOBACCO QUIT 15 YRS OR MORE [facility] August 24, 2020 09:15 AM VA-TOBACCO FORMER USER [facility]bi [facility] August 24, 2020 09:15 AM VA-TOBACCO QUIT 15 YRS OR MORE [facility] Feb 19, 2018 11:23 AM VA-TOBACCO FORMER USER [facility] MiroslvaaSiddhartha [facility] Feb 19, 2018 11:23 AM VA-TOBACCO QUIT 15 YRS OR MORE [facility] Aug 18, 2017 02:21 PM LIFETIME NON-TOBACCO USER [facility] Aug 18, 2017 02:21 PM TOBACCO SCREEN DONE [facility] Oct 28, 2016 02:16 PM TOBACCO LAST USED DATE [facility] Oct 28, 2016 12:36 PM LIFETIME NON-TOBACCO USER [facility] MiroslavaSiddhartha [facility] Oct 28, 2016 12:36 PM TOBACCO SCREEN DONE [facility] Dec 07, 2015 08:34 AM LIFETIME NON-TOBACCO USER [facility] MiroslavaSiddhartha [facility] Dec 07, 2015 08:34 AM TOBACCO SCREEN DONE [facility] Feb 06, 2015 01:02 PM TOBACCO LAST USED DATE [facility] Encounter Notes: All associated encounter notes This section contains the clinical notes associated to the Encounter. Date/Time Encounter Note(s) Provider Source Feb 18, 2024 06:41 AM PREVENTIVE MEDICIN E NOTE: LOCAL TITLE: CLINICAL REMINDERS NOTE STANDARD TITLE: PREVENTIVE MEDICINE NOTE DATE OF NOTE: FEB 18, 2024@06:41 ENTRY DATE: FEB 18, 2024@06:41:30 AUTHOR: ISABEL ROJAS COSIGNER: URGENCY: STATUS: COMPLETED Influenza Immunization: The patient has received the seasonal influenza vaccine for the current season at another location. Documented: INFLUENZA, UNSPECIFIED FORMULATION Historical Date Administered: Jan 02, 2024 Outside Location: [facility] Information Source: [facility] Is [employer] also an Employee? No /es/ ISABEL ROJAS RN Signed: 02/18/2024 06:42 ISABEL ROJAS [facility]
== END 2024-11-19 17:27 | disposition home or self-care (01) ==
LOC: ANHED 17:22
PROVIDERS: Emergency Provider Emergency Medicine
DX: S19.9XXA Unspecified injury of neck, initial encounter (principal); V43.62XA Car passenger injured in collision with other type car in traffic accident, initial encounter
CPT/HCPCS: 70450; 72125; 99284